=== PATIENT | female | born 1990 | race Two or more races ===

== ENCOUNTER 2020-08-21 10:50 | Emergency (ER) | payer OTHER ==
[~2020-08-21] VITALS: Ht 157.5 cm; Wt 70.3 kg
[~2020-08-21 10:50] MED LIST: MULTI-DAY1 TAB PO
[2020-08-21] MEDS ORDERED: INTESTINEX680 M1 PO (15:49)
[2020-08-21] MEDS ORDERED: BACTRIM DS TAB1 EACH PO (15:49)
[2020-08-21] MEDS ORDERED: CELEBREX100 MG PO (15:49)
== END 2020-08-21 16:33 | disposition home or self-care (01) ==
LOC: ER 10:50
DX: L03.112 Cellulitis of left axilla (principal); L02.412 Cutaneous abscess of left axilla; L73.2 Hidradenitis suppurativa; B96.1 Klebsiella pneumoniae [K. pneumoniae] as the cause of diseases classified elsewhere; B96.89 Other specified bacterial agents as the cause of diseases classified elsewhere

== ENCOUNTER 2020-08-28 11:40 | Outpatient (CLI) | payer OTHER ==
[~2020-08-28 11:40] MED LIST changes: +BACTRIM DS TAB1 EACH PO; +CELEBREX100 MG PO; +INTESTINEX680 M1 PO
== END 2020-08-28 12:37 | disposition home or self-care (01) ==
LOC: WOUND MED 11:40
PROVIDERS: ATTEND Surgery
DX: L98.492 Non-pressure chronic ulcer of skin of other sites with fat layer exposed (principal)
CPT/HCPCS: G0463; A4554; A4930; A6216; A6219

== ENCOUNTER 2020-09-04 11:15 | Outpatient (CLI) | payer OTHER | END 2020-09-04 11:48 | disposition home or self-care (01) | LOC: WOUND MED 11:15 | PROVIDERS: ATTEND Surgery | DX: R60.0 Localized edema (principal); L98.492 Non-pressure chronic ulcer of skin of other sites with fat layer exposed | CPT/HCPCS: G0463; A4554; A4930; A6216; A6219 ==

== ENCOUNTER 2021-10-09 12:26 | Inpatient (IN) | payer OTHER ==
[~2021-10-09] VITALS: Ht 157.5 cm; Wt 72.6 kg
[2021-10-10] MEDS ORDERED: ALBUTEROL2.5 MG/3 M IH (13:13)
== END 2021-10-10 15:11 | disposition home or self-care (01) | DRG 92 ==
LOC: ER 12:26 → SEC-K 20:44 → MEDI 20:44 → SEC-K 21:07 → MEDJ 10-10 10:47
PROVIDERS: ADMIT Internal Medicine; ATTEND Internal Medicine
PROC: BW24ZZZ Computerized Tomography (CT Scan) of Chest and Abdomen (ICD-10-PCS; principal; 2021-10-09)
PROC: B24BZZZ Ultrasonography of Heart with Aorta (ICD-10-PCS; 2021-10-10)
DX: G24.8 Other dystonia (principal); Q87.89 Other specified congenital malformation syndromes, not elsewhere classified; R09.02 Hypoxemia; L73.2 Hidradenitis suppurativa; G71.09 Other specified muscular dystrophies; M25.561 Pain in right knee

== ENCOUNTER 2021-11-25 13:35 | Emergency (ER) | payer OTHER ==
[~2021-11-25] VITALS: Ht 157.5 cm; Wt 72.6 kg
[~2021-11-25 13:35] MED LIST changes: +ALBUTEROL2.5 MG/3 M IH
== END 2021-11-25 19:47 | disposition home or self-care (01) ==
LOC: ER 13:35
DX: S49.92XA Unspecified injury of left shoulder and upper arm, initial encounter (principal); W19.XXXA Unspecified fall, initial encounter; Y93.9 Activity, unspecified; Y92.009 Unspecified place in unspecified non-institutional (private) residence as the place of occurrence of the external cause; S89.92XA Unspecified injury of left lower leg, initial encounter; Z91.011 Allergy to milk products

== ENCOUNTER 2021-11-26 09:09 | Emergency (ER) | payer OTHER ==
[~2021-11-26] VITALS: Ht 154.9 cm; Wt 72.6 kg
== END 2021-11-26 15:31 | disposition home or self-care (01) ==
LOC: ER 09:09
DX: O22.30 Deep phlebothrombosis in pregnancy, unspecified trimester (principal); M71.20 Synovial cyst of popliteal space [Baker], unspecified knee; I10 Essential (primary) hypertension; Z91.011 Allergy to milk products; Z91.018 Allergy to other foods

== ENCOUNTER 2025-01-17 12:13 | Emergency (ER) | payer OTHER ==
[~2025-01-17] VITALS: Ht 162.6 cm; Wt 113.4 kg
[2025-01-17 12:42] VITALS: BP 103/72; O2SAT 95
[2025-01-17] MEDS ORDERED: FAMOtidine 10 MG/ML (4ML VIAL) IV PUSH ONE (13:15)
[2025-01-17] MEDS ORDERED: HYOSCYAMINE SULFATE 0.125 MG TAB.SUBL SL ONE (13:15)
[2025-01-17 13:48] LABS: BASO % 0.4 % (0.1-1.2); EOS # 0.10 (0.04-0.54); EOS % 1.4 % (0.7-7.0); LYMPH # 1.73 (1.18-3.74); LYMPH % 24.2 % (19.3-53.1); MEAN PLATELET VOLUME 10.20 fl (9.4-12.4); MONO # 0.58 (0.24-0.82); MONO % 8.1 % (4.7-12.5); NEUT # 4.70 (1.56-6.13); NEUT % 65.6 % (34.0-71.1); RED CELL DISTRIBUTION WIDTH 13.7 % (11.6-14.4)
[2025-01-17 14:16] LABS: ALT/SGPT 45.0 U/L (12-78); AST/SGOT 27.0 U/L (15-37); BILIRUBIN TOTAL 0.29 mg/dL (0.3-1.2); GLOBULINA 4.4 G/DL (2.4-3.5); GLUCOSE FASTING 97.0 mg/dL (65-100); OSMOLALITY SERUM 295.0 MOSM/KG (275-295)
[2025-01-17 14:18] LABS: BUN CREA RATIO 35.0 (7.0-25.0); CREATININE SERUM 0.26 mg/dL (0.55-1.02); GFR 298.61
[2025-01-17 14:22] LABS: COVID-19 AG NEGATIVE (NEGATIVE)
[2025-01-17] MEDS ORDERED: DIPHENOXYLATE HCL/ATROPINE 1 UDTAB TABLET PO ONE (22:00)
[2025-01-17] MEDS ORDERED: CIPRO500 MG PO (22:04)
[2025-01-17] MEDS ORDERED: PEPCID AC20 MG PO (22:04)
[2025-01-17] MEDS ORDERED: INTESTINEX680 M1 PO (22:04)
== END 2025-01-17 23:15 | disposition home or self-care (01) ==
LOC: ER 12:13
PROVIDERS: General Practice
DX: R19.7 Diarrhea, unspecified (principal); Z20.822 Contact with and (suspected) exposure to COVID-19; Z91.011 Allergy to milk products; Z91.018 Allergy to other foods
CPT/HCPCS: 36415; 96365; 99282; J3490